=== PATIENT | female | born 1985 | race Caucasian/White ===

== ENCOUNTER 2020-03-16 10:02 | Observation (INO) | payer OTHER ==
[~2020-03-16] VITALS: Ht 165.1 cm; Wt 86.6 kg
[~2020-03-16 10:02] MED LIST: PREN-88 PO
== END 2020-03-16 11:47 | disposition home or self-care (01) ==
LOC: 8 EST LDRP 10:02
PROVIDERS: ADMIT Obstetrics & Gynecology; ATTEND Obstetrics & Gynecology
DX: O36.8130 Decreased fetal movements, third trimester, not applicable or unspecified (principal); Z3A.38 38 weeks gestation of pregnancy
CPT/HCPCS: 76805; 76818; 99281; G0378

== ENCOUNTER 2020-03-18 18:46 | Inpatient (IN) | payer OTHER ==
[~2020-03-18] VITALS: Ht 167.6 cm; Wt 86.6 kg
[2020-03-18] MEDS ORDERED: LACTATED RINGERS 1,000 ML IV SCH ×2 (20:11→20:30)
[2020-03-18] MEDS ORDERED: DEXT 5%/LR + PITOCIN 20UNITS/L 1,000 ML IV SCH ×2 (20:11→20:45)
[2020-03-18] MEDS ORDERED: BUTORPHANOL TARTRATE 2 MG/ML VIAL IV PRN (20:15)
[2020-03-18] MEDS ORDERED: MISOPROSTOL 100MCG TABLET VG SCH (20:15)
[2020-03-18] MEDS ORDERED: CARBOPROST TROMETHAMINE 250 MCG/ML AMPUL IM PRN (20:15)
[2020-03-18] MEDS ORDERED: LIDOCAINE HCL 1% 20ML VIAL (Pyxis) INJ INFIL SCH (20:15)
[2020-03-18] MEDS ORDERED: AMPICILLIN 2,000 MG in SODIUM CHLORIDE 0.9% 100 ML IV SCH (20:15)
[2020-03-18] MEDS ORDERED: METHYLERGONOVINE MALEATE 0.2 MG/ML IM PRN (20:15)
[2020-03-18] MEDS ORDERED: NALOXONE HCL 0.4 MG/ML 1ML VIAL IM PRN (20:15)
[2020-03-18 20:41] LABS: CLARITY URINE CLEAR (CLEAR); COLOR URINE YELLOW (YELLOW); KETONES URINE NEGATIVE (NEGATIVE); LEUKOCYTE ESTERASE URINE NEGATIVE (NEGATIVE); NITRITE URINE NEGATIVE (NEGATIVE); OCCULT BLOOD URINE NEGATIVE (NEGATIVE); PROTEIN URINE NEGATIVE (NEGATIVE); SPECIFIC GRAVITY URINE 1.008 (1.005-1.030); UROBILINOGEN URINE 0.2 E.U./dL (0.2-1.0)
[2020-03-18 20:43] LABS: BASOPHILS % 0.3 % (0.0-2.0); EOSINOPHILS % 0.5 % (0.0-5.0); HEMATOCRIT. 34.6 % (36.0-48.0); LYMPHOCYTES % 16.9 % (20.0-50.0); MEAN CORPUSCULAR VOLUME 89.4 fL (81.0-99.0); MEAN PLATELET VOLUME 9.5 fl (7.4-10.4); MONOCYTES % 6.1 % (2.0-8.0); NEUTROPHILS % 76.2 % (40.0-76.0); PLATELET 209 x1000/uL (130-400); RED BLOOD CELL COUNT 3.87 mill/uL (4.2-5.4); RED CELL DISTRIBUTION WIDTH 14.6 % (11.6-14.6)
[2020-03-18 20:49] LABS: *AMPHETAMINES SCREEN URINE NEGATIVE (NEGATIVE); *BARBITURATES SCREEN URINE NEGATIVE (NEGATIVE); *BENZODIAZEPINES SCREEN URINE NEGATIVE (NEGATIVE); *COCAINE SCREEN URINE NEGATIVE (NEGATIVE); METHADONE URINE SCREEN NEGATIVE (NEGATIVE); OPIATES URINE SCREEN NEGATIVE (NEGATIVE)
[2020-03-18 20:50] LABS: CANNABINOID URINE SCREEN NEGATIVE (NEGATIVE); PHENCYCLIDINE URINE SCREEN NEGATIVE (NEGATIVE)
[2020-03-18 20:52] LABS: INR 0.9; PARTIAL THROMBOPLASTIN TIME 25.5 sec (23.4-31.0); PROTHROMBIN TIME 9.6 sec (9.6-11.0)
[2020-03-18 21:18] LABS: HEPATITIS B SURFACE ANTIGEN NEGATIVE
[2020-03-19] MEDS ORDERED: ACETAMINOPHEN 500MG TABLET PO NR (00:16)
[2020-03-19] MEDS ORDERED: DEXT 5%/LR + PITOCIN 20UNITS/L 1,000 ML IV SCH (00:27)
[2020-03-19] MEDS ORDERED: METHYLERGONOVINE MALEATE 0.2 MG/ML IM PRN (00:30)
[2020-03-19] MEDS ORDERED: HEMORRHOIDAL SUPP PR PRN (00:30)
[2020-03-19] MEDS ORDERED: LANOLIN OINT 7GM TUBE TOP PRN (00:30)
[2020-03-19] MEDS ORDERED: IBUPROFEN 400MG TABLET PO PRN (00:30)
[2020-03-19] MEDS ORDERED: GLYCERIN/WITCH HAZEL LEAF MEDICATED PAD TOP PRN (00:30)
[2020-03-19] MEDS ORDERED: BENZOCAINE/LANOLIN/ALOE VERA SPRAY TOP PRN (00:30)
[2020-03-19 01:15] VITALS: BP 118/77
[2020-03-19] MEDS ORDERED: AMPICILLIN 1,000 MG in SODIUM CHLORIDE 0.9% 50 ML IV SCH (02:30)
[2020-03-19 02:40] VITALS: BP 115/75
[2020-03-19 04:50] VITALS: BP 112/73
[2020-03-19 06:36] LABS: BASOPHILS % 0.3 % (0.0-2.0); EOSINOPHILS % 0.1 % (0.0-5.0); HEMATOCRIT. 30.2 % (36.0-48.0); HEMOGLOBIN. 10.4 g/dL (12.0-16.0); LYMPHOCYTES % 8.4 % (20.0-50.0); MEAN CORPUSCULAR HEMOGLOBIN 30.7 pg (28.0-32.0); MEAN CORPUSCULAR VOLUME 89.3 fL (81.0-99.0); MEAN PLATELET VOLUME 9.5 fl (7.4-10.4); NEUTROPHILS % 87.2 % (40.0-76.0); PLATELET 208 x1000/uL (130-400); RED BLOOD CELL COUNT 3.38 mill/uL (4.2-5.4); RED CELL DISTRIBUTION WIDTH 14.3 % (11.6-14.6)
[2020-03-19 08:00] VITALS: BP 101/44
[2020-03-19] MEDS: IBUPROFEN 800MG TABLET PO PRN ×2 (08:48→16:31)
[2020-03-19] MEDS ORDERED: PRENATAL VIT/FE FUMARATE/FA TABLET PO SCH (09:00)
[2020-03-19 16:10] VITALS: BP 108/54
[2020-03-19 19:30] VITALS: BP 114/69
[2020-03-19] MEDS ORDERED: DOCUSATE SODIUM 100MG CAPSULE PO SCH (21:00)
[2020-03-20 04:00] VITALS: BP 115/56
== END 2020-03-20 17:53 | disposition home or self-care (01) | DRG 560 ==
LOC: 8 EST LDRP 18:46 → OBSVTOIN 22:12 → 8EST 23:38 → 8 EST LDRP 03-19 00:01 → 8EST 03-19 01:11
PROVIDERS: ADMIT Obstetrics & Gynecology; ATTEND Obstetrics & Gynecology
PROC: 10E0XZZ Delivery of Products of Conception, External Approach (ICD-10-PCS; principal; 2020-03-18)
DX: O48.0 Post-term pregnancy (principal); D62 Acute posthemorrhagic anemia; O99.02 Anemia complicating childbirth; O77.0 Labor and delivery complicated by meconium in amniotic fluid; Z3A.41 41 weeks gestation of pregnancy; Z37.0 Single live birth
CPT/HCPCS: 36415; 80305; 81003; 85025; 86592; 86703; 86762; 86850; 86900; 87340; 99281; G0378; J0290; J0595; J2590; J3490; J7050; J7120